=== PATIENT | male | born 1990 | race Caucasian/White ===

== ENCOUNTER 2024-02-17 22:14 | Observation (INO) | payer OTHER, SELFPAY ==
[2024-02-17 17:09] VITALS: BP 108/73
[2024-02-17 17:32] VITALS: BP 100/60
[2024-02-17 17:34] VITALS: BMI 24.6
[2024-02-17 17:57] LABS: % Basophils 0.4 % (0-2); % Eosinophils 0.4 % (0-6); % Immature Granulocytes 0.3 % (0-0.5); % Lymphocytes 22.1 % (20.5-51.1); % Monocytes 6.4 % (1.7-9.3); % Neutrophils 70.4 % (42.2-75.2); Absolute Monocytes 0.6 10^3/uL (0.1-0.6); Absolute Neutrophils 6.3 10^3/uL (1.4-6.5); Hematocrit 41.9 % (39.0-52.0); Hemoglobin 14.2 g/dL (13.0-18.0); Mean Corp Hgb Conc. 33.9 g/dL (33.0-37.0); Mean Corpuscular Hgb 28.7 pg (27.0-31.0); Mean Corpuscular Volume 84.8 fL (80.0-94.0); Mean Platelet Volume 8.7 fL (7.4-10.4); Nucleated Red Blood Cells % 0 % (-); Platelet Count 267 10^3/uL (130-400); Red Blood Cell Count 4.94 10^6/uL (4.70-6.10); Red Cell Dist. Width 14.5 % (11.5-14.5); White Blood Cell Count 8.9 10^3/uL (4.8-10.8)
[2024-02-17 18:11] LABS: ALT (SGPT) 32 U/L (0-50); AST (SGOT) 32 U/L (17-59); Albumin 4.7 g/dl (3.5-5.0); Alkaline Phosphatase 87 U/L (38-126); Blood Urea Nitrogen 19 mg/dl (9-20); Calcium 10.2 mg/dl (8.4-10.2); Carbon Dioxide 23 mmol/L (22-30); Chloride 101 mmol/L (98-107); Estimated Creatinine Clearance 78 ml/min; Glucose 148 mg/dl (70-99); Potassium 4.4 mmol/L (3.5-5.1); Sodium 138 mmol/L (135-145); Total Bilirubin 0.4 mg/dl (0.2-1.3); Total Protein 7.4 g/dl (6.3-8.2); eGFR 58.71
--- NOTE | 2024-02-17 18:23 | ED.GENMED ---
History of Present Illness
General
Chief Complaint: Alcohol Problem
Source: patient
Time Seen by Provider: 02/17/24 18:06
History of Present Illness
History of Present Illness:
33yoM with a history of drug and alcohol abuse presenting for detox evaluation. Patient reports that he is detoxing from alcohol, benzodiazepines, and fentanyl. Last use of benzos and alcohol was 3 days ago. He used IV fentanyl earlier today.
Patient reports that he had 2 seizures today. He does not recall the episodes although he was told by his that he had generalized shaking during this. He states all he remembers is waking up on the ground. Episodes occurred around 9 to 10 AM
this morning. Since this, patient has been feeling dizzy and off balance. Patient also reports fatigue and malaise. He had a temperature of 101.2 yesterday. He believes he may have a urinary tract infection because he is having urinary frequency
and foul-smelling urine.
Patient has a history of withdrawal seizures in the past. He typically drinks 1 pint to 1 L of vodka daily. He also typically takes Xanax 2mg 3-4 times daily.
Phy Exam
Physical Exam
Physical Exam:
Appears fatigued, non-toxic. Easily aroused and answering questions appropriately
General Physical Exam
General Skin: warm and dry
General Mental: alert
Cardiovascular Exam
Cardiovascular Exam: regular rate/rhythm, no edema and no murmur
Pulmonary Exam
Pulmonary Exam: lungs clear, no respiratory distress and no crackles
Gastrointestinal Exam
Gastrointestinal Exam: non tender, soft and non distended
Neurological Exam
Neurological Exam: alert
[place] Coma Scale
Eye Opening: Spontaneous
Verbal Response: Oriented
Motor Response: Obeys Commands
GCS Total Score: 15
Skin Exam
Skin Exam: normal color and warm/dry
Psychiatric Exam
Psychiatric Exam: normal mood/affect
Scores
Withdrawal Assessment of Alcohol
Withdrawal Assessment Completed?: Not applicable
Course
Orders/Labs/Results
Orders:
Orders
02/17/24 17:47
Electrocardiogram (*1) Urgent
Reason for Study: Vertigo / Dizzy
02/17/24 17:48
EKG- Treatment ONCE
02/17/24 17:49
Complete Blood Count/With Diff Urgent
Comprehensive Metabolic Panel Urgent
02/17/24 18:21
Cardiac Monitoring- Treatment ONCE
0.9% Sodium Chloride 1000 ml [Nss] 1,000 ml IV BOLUS
02/17/24 18:22
CT Head W/o Iv Contrast Urgent
Comment:
Reason For Exam: Head strike, seizure
CR Chest - 2 Views Urgent
Comment:
Reason For Exam: Cough
02/17/24 18:25
Alcohol Urgent
Magnesium Urgent
Salicylate Urgent
Total CK [Creatine Phosphokinase] Urgent
Troponin I Urgent
Tylenol [Acetaminophen] Urgent
02/17/24 18:28
COVID-19 Antigen Urgent
Source: Nasal Swab
Lactate Level [Lactic Acid] Urgent
Blood Culture Urgent
ANA ROSA Source: Blood/Venous
Specimen Description:
02/17/24 18:59
0.9% Sodium Chloride 1000 ml [Nss] 1,000 ml IV BOLUS
02/17/24 19:06
Urinalysis Reflex To Culture Urgent
Date Specimen was Collected: 02/17/24
Time Specimen was Collected: 18:58
Urine Microscopic Reflex Cult Urgent
Blood Culture Routine
ANA ROSA Source: Blood/Venous
Specimen Description:
02/17/24 22:01
Admit/Transfer Patient As Directed
Co-Sign Provider:
Level of Care: Observation services
Assign to:: Medical/Surgical
Physician / Group: Beverley
Diagnosis: Seizure
PRN Pain Medication Management As Directed
May give lesser potent ordered pain med per pt: Yes
preference::
Protocol:: Medication orders for pain may be administered in a
manner that supports deferring to patient preference
when the pt is:
- Requesting an ordered lesser potent pain medication.
Least to most potent pain medications are defined
as: acetaminophen < NSAID < tramadol < opioids
(morphine, oxycodone, hydromorphone).
- Requesting a lesser dose of the same medication IF
ORDERED.
- Requesting a less intrusive route of administration
if both routes are prescribed by the provider (PO <
IV).
02/17/24 22:02
Code Status As Directed
Resuscitation Status: Full Code
02/17/24 22:45
0.9% Sodium Chloride 1000 ml [Nss] 1,000 ml IV 125 mls/hr
0.9% Sodium Chloride [Nss (Preservative Free)] See Protocol IV PRN PRN
Acetaminophen [Tylenol] 650 mg PO Q4HPRN PRN
Bisacodyl [Dulcolax] 10 mg RECTAL [id number] PRN
Docusate W/Senna [Senokot-S] 1 tablet PO BIDPRN PRN
FOLic ACID [Folvite] 1 mg 0.9% Sodium Chloride 50 ml [Nss] 50 ml IV DAILYPRN
Ketorolac [Toradol] 10 mg IV Q6HPRN PRN
Lorazepam [Ativan] 1 mg IV Q1HPRN PRN
Lorazepam [Ativan] 1 mg PO Q2HPRN PRN
Lorazepam [Ativan] 2 mg IV Q1HPRN PRN
Ondansetron Injectable [Zofran] 4 mg IV Q6HPRN PRN
Polyethylene Glycol Powder [Miralax] 17 grams PO DAILYPRN PRN
02/17/24 22:45
Case Management Consult Once
Case Management Consult: Other
Comment: Substance abuse counseling
DIETARY CONSULT Routine
Reason for Consult: Nutrition support, possible refeeding guidelines
NEUROLOGY CONSULT Routine
Consulting Provider: Jam Pham
Was physician already notified: Yes
Reason for consult: Seisure,
Complete Blood Count/With Diff Routine
Urinalysis Routine
Urine Drug Abuse Screen Routine
Activity As Directed
Activity Level: Out of Bed-Early Mobility
MSAS SCORE As Directed
MSAS Score 0-4: Repeat MSAS every 2 hours until 0-4 for three consecutive assessments, then every 4 hours x 48
hours.
MSAS Score 5-7: For MILD withdrawl symptoms. Repeat MSAS and RASS every 2 hours
MSAS Score 8-11: For MODERATE withdrawal symptoms. Repeat MSAS and RASS every 1 hour. Consider ICU or IMU
level of care.
MSAS Score > 11: For SEVERE withdrawal symptoms. Repeat MSAS and RASS every 1 hour. Notify provider, consider
ICU level of care.
MSAS Additional Instructions: If no improvement or no decrease in score from severe to moderate within 12
hours, consult psychiatry
MSAS Notify Provider: Notify provider if patient requires more than 10 mg of Lorazepam in eight hour period.
Precautions As Directed
Type of Precautions: Seizure
Comment: Fall precaution
Vital Signs As Directed
Frequency: Per unit guidelines
DX Deep Vein Thrombosis Video Routine
02/18/24 00:00
Thiamine Injection 200 mg IV Q8
02/18/24 Breakfast
Regular
Basic Metabolic Panel IN AM
Magnesium IN AM
02/18/24 08:00
FOLic ACID [Folvite] 1 mg PO DAILY
02/18/24 18:00
Enoxaparin Sodium [Lovenox] 40 mg SC QPM
02/21/24 08:00
Thiamine HCl [Vitamin B1] 100 mg PO BID
Abnormal Lab Results
02/17/24 02/17/24 02/17/24
17:49 18:25 18:28
Creatinine 1.6 H mg/dL
(0.7-1.3)
Glucose 148 H mg/dl
(70-99)
Lactic Acid 2.5 H mmol/L
(0.7-2.0)
Urine Ketones
Urine Bilirubin
Urine Urobilinogen
Leukocyte Esterase Rfl
Urine Albumin (Reflex)
Salicylates < 1.0 L mg/dl
(2.0-20.0)
Acetaminophen < 10 L ug/ml
(10-30)
02/17/24
19:06
Creatinine
Glucose
Lactic Acid
Urine Ketones Trace A
(Negative)
Urine Bilirubin 1+ A
(Negative)
Urine Urobilinogen 2+ A
(Neg - 1+)
Leukocyte Esterase Rfl Trace A
(Negative)
Urine Albumin (Reflex) 1+ A
(Neg - Trace)
Salicylates
Acetaminophen
02/17/24 17:49
02/17/24 17:49
Vital Signs
Initial and Last Documented VS:
Initial Vital Signs
Temp Pulse Resp BP Pulse Ox
98 F 87 20 108/73 100
02/17/24 17:09 02/17/24 17:09 02/17/24 17:09 02/17/24 17:09 02/17/24 17:09
Last Documented Vital Signs
Temp Pulse Resp BP Pulse Ox
98 F 63 16 108/67 95
02/17/24 17:09 02/17/24 21:00 02/17/24 22:05 02/17/24 21:00 02/17/24 21:00
MDM/Problems Addressed
Differential Diagnosis Includes:
33yoM here after two reported seizures at home this morning. Patient stopped alcohol and benzos 3 days ago. Admits to actively using IV fentanyl. Also reports a fever of 101.2 yesterday. He is afebrile here with otherwise normal vitals. He is
fatigued on exam but non-toxic. Differential diagnosis includes but is not limited to: withdrawal seizure, syncope, dehydration, alcohol/benzo withdrawal
Initial ED plan: Will check septic workup given report of fever and active IVDU. Check cardiac labs, EKG, UA, CXR, and CT head. IV fluid bolus.
*EKG
Interpreted by ED Provider?: Yes
EKG Intrepretation Date: 02/17/24
Heart Rate: 76
Rate: normal
Rhythm: sinus
[place]: normal axis
Interval: normal interval
QRS Pattern: normal QRS
Ischemia: other (Benign early repolarization)
*Critical Care Note
Total Time (30-74mins, 75-104mins- exclusive of procedures): Not Applicable
Update Note
Update Note:
Labs reveal a creatinine of 1.6, unclear baseline. White count normal. Lactate 2.5. CT head is negative. No signs of infection on UA or CXR. Will admit for further management.
ED Attending Note
-
Portions of this chart may have been created with voice recognition software.� Occasional wrong word or��sound alike� substitutions may have occurred due to the inherent limitations of voice recognition software.
Discharge Plan
Departure
Patient Disposition: Admit
Date of Disposition: 02/17/24
Time of Disposition: 21:34
Presentation/result/management discussed w/ accepting MD/DO: Hospitalist
Discharge Problem:
Seizure, Subjective fever
Interventions
Interventions:
*Risk Screen - Suicide Last Done: 02/17/24 17:35
*General Assessment Last Done: 02/17/24 17:35
*Neglect/Abuse Screening Last Done: 02/17/24 17:35
*ED COVID-19 Vaccine History Last Done: 02/17/24 17:35
ED- Neurological Assessment Last Done: 02/17/24 17:38
ED-Psychological Assessment Last Done: 02/17/24 17:38
[2024-02-17] MEDS: NSS 1000 IV ×2 (18:31→19:10)
[2024-02-17 18:46] LABS: COVID-19 Antigen Negative (Negative)
[2024-02-17 18:54] LABS: Lactic Acid 2.5 mmol/L (0.7-2.0)
[2024-02-17 18:54] LABS: Acetaminophen < 10 ug/ml (10-30); Alcohol None Detected; Creatine Phosphokinase 58 U/L (55-170); Salicylate < 1.0 mg/dl (2.0-20.0)
[2024-02-17 19:05] LABS: Troponin I < 0.012 ng/ml
[2024-02-17 19:06] VITALS: BP 102/73
[2024-02-17 19:15] LABS: Urine Albumin 1+ (Neg - Trace); Urine Bilirubin 1+ (Negative); Urine Character Slightly Cloudy (Clear); Urine Color Yellow; Urine Glucose Negative (Negative); Urine Ketone Trace (Negative); Urine Leukocyte Trace (Negative); Urine Nitrite Negative (Negative); Urine Occult Blood Negative (Negative); Urine Urobilinogen 2+ (Neg - 1+)
[2024-02-17 19:30] LABS: Urine Squamous Cell >30 /LPF (Few)
[2024-02-17 19:31] LABS: Urine Red Blood Cell 0-2 /HPF (0-2)
[2024-02-17 20:00] VITALS: BP 103/76
[2024-02-17 21:00] VITALS: BP 108/67
--- NOTE | 2024-02-17 22:07 | HPS.HSE ---
Family Physician
-
Family Physician: * NONE
Chief Complaint
-
Seizure
History of Present Illness
33-year-old male with history of polysubstance abuse including benzodiazepine, narcotic and alcohol who presented to the hospital after had a witnessed couple episodes of seizure while he was just outside his house by his car, witnessed by his .
Patient admitted 3 days ago he decided to stop benzo and alcohol on his own while he is still getting narcotic like today get some IV fentanyl, admitted he was shaky and sweaty and he decided to go [facility] and where he had a seizure
witnessed by his , patient of not much recollection of the event and he was notified and told by his .
The seizures up nearly in the morning around 9 to 10 AM, and look like after that decided to stay home and is feeling tired and fatigued and lousy and generalized body ache, and he did not call EMS look like family brought him to the hospital.
Patient currently sleepy but arousable oriented x 3 able to provide detailed information. Complaining of feeling tired, sleepy and having generalized body ache while moving extremities freely and admitted yesterday had fever at home temperature one
1.2 also having some increased urinary frequency dysuria and foul-smelling urine urinalysis he is in some leukocyte Estrace did not show nitrate or bacteria and white cell count was 325.
Patient admitted history of the prior seizure and he was on Keppra but stopped taking it on his own a month ago.
Medical History
Past Medical History
Past Medical History: Reports Other
Additional Past Medical History:
Past medical history archive reviewed:
History of substance abuse
History of seizure
Noncompliant
Social history: Lives with his , admit he used to be heavy drinker until 3 days ago when he decided to stop on his own, smokes cigarette daily but it varies in number also uses fentanyl regularly.
Family history: Reviewed and noncontributory
Past Surgical History: Reports Other
Social History
Unable to obtain full social history at this time due to: Other
Family History
Family History: Other
Allergies / Home Medications
Allergies reflects when Allergies were last updated in [facility] [employer].
Home Medications with original date entered in [facility] [employer]
Allergy/Medication List:
Allergies
Allergy/AdvReac Type Severity Reaction Status Date / Time
No Known Allergies Allergy Unverified 02/17/24 17:13
Home Medications
Patient admitted he is not taking any medical
Review of Systems
-
A 12 point ROS was completed and negative except as noted: Yes
Physical Exam
Vital Signs
Vital Signs
Temp Pulse Resp BP Pulse Ox
98 F 63 16 108/67 95
02/17/24 17:09 02/17/24 21:00 02/17/24 22:05 02/17/24 21:00 02/17/24 21:00
Physical exam:
General: Sleepy and lethargic but arousable and oriented x3, not in distress and holds appropriate conversation.
HEENT: No active discharge, ecchymosis or bruising, dry lips, tongue and mucous membrane.
Eyes: No discharge or red conjunctiva, no nystagmus, pupils are reactive and equal
Neck:Supple, no JVD no bruit no goiter.
Respiratory: Normal AP contour and diameter, normal chest wall movement, normal respiratory effort, no respiratory distress,
Lungs: Good air entry bilaterally, no wheezing or rhonchi, no rales or crackles
Heart: S1, S2 regular, normal rate, no added sound.
Gastrointestinal: Positive bowel sounds, soft, nontender, no guarding or rigidity or organomegaly
Musculoskeletal: , no chest wall abnormality or tenderness. All joints and extremities have good range of motion, no muscle tenderness or any joint swelling or tenderness.
Extremities: No pitting edema, good peripheral pulses, good range of motion
Skin: Warm and dry, no ulceration, normal color.
Neurological: Sleepy, arousable and oriented x3, lower extremities freely, no facial droop, speech clear and comprehensive, good muscle tone,
Psychiatric: Sleepy, normal thought and judgment, flat affect,
Physical Exam
General: Other
Laboratory Results
-
02/17/24 17:49
02/17/24 17:49
Laboratory Results
Lactic Acid 2.5 mmol/L (0.7-2.0) H 02/17/24 18:28
Total Bilirubin 0.4 mg/dl (0.2-1.3) 02/17/24 17:49
AST 32 U/L (17-59) 02/17/24 17:49
ALT 32 U/L (0-50) 02/17/24 17:49
Alkaline Phosphatase 87 U/L (38-126) 02/17/24 17:49
Troponin I < 0.012 ng/ml 02/17/24 18:[address]:No evidence of acute intracranial abnormality.
Chest x-ray: No acute cardiopulmonary abnormality
Data Reviewed
-
Diagnostic Radiology: Report Reviewed by me and Discussed with Patient
CT Scan: Report Reviewed by me and Discussed with Patient
Lab Data: Labs Reviewed by me and Discussed with Patient
Old Records: Reviewed
Impression/Plan
-
IMPRESSION:
33-year-old male with history of polysubstance abuse and prior seizure related to substance abuse, presented to the hospital after had a couple of witnessed seizure by his at home patient stopped benzo and alcohol 3 days ago on his own will
continue to take fentanyl.
Encephalopathy: Likely postictal while substance-induced related as a possibility infectious causes, scattered encephali meningitis, there is no fever or leukocytosis even patient had a fever at home yesterday
Close monitoring
IV fluid
Get a UDS
Seizure: Likely secondary to withdrawal from benzo and alcohol as he did not take for the last 3 days while other causes need to be considered
Patient needs to be on Keppra he does not know the dose but did not take it for a month.
I will start him on IV Keppra 500 IV twice daily
Neurology consult
Seizure precaution
IV fluid
CT brain showed no acute abnormality
Lactic acidosis: Mild lactic acid is 2.5 likely secondary to seizure
IV fluid
Recheck
Urinary symptoms: Have a trace leukocyte but no bacteria leukocyte nitrite, since he is symptomatic with that I will start him on Rocephin could be de-escalated pending culture sensitivity
Polysubstance abuse: Advised about quitting and risks of the continuation explained to him in detail
Patient willing to go to inpatient rehab for now
Alcohol withdrawal protocol
Close monitoring
Elevated creatinine: We do not know the baseline.
IV fluid
Recheck
Avoid nephrotoxin
All discussed with the patient in detail and expressed understanding
CODE STATUS full code
DVT prophylaxis
[2024-02-17] MEDS: KEPPRA 500 MG IV (22:26)
[2024-02-17] MEDS: ROCEPHIN 1000 MG IV (22:31)
[2024-02-17] MEDS: STERILE WATER FOR INJECTION 10 ML IV (22:31)
[2024-02-17 22:46] VITALS: BMI 24.6
[2024-02-17 23:00] VITALS: BP 144/92
--- NOTE | 2024-02-17 23:00 | PTCARENOTE ---
Pt arrived onto floor @2254. Pt AAOx3, able to stand and pivot into bed due to fatigue. Pt only complaint at this time is fatigue and malaise. Pt oriented to room and call herrera; will continue to monitor.
[2024-02-18] MEDS: NSS 1000 IV ×2 (00:13→08:44)
[2024-02-18] MEDS: THIAMINE INJECTION 200 MG IV ×3 (00:13→16:08)
--- NOTE | 2024-02-18 00:20 | PTCARENOTE ---
Pt found to be more sedated when performing admission questions. Upon arrival to floor, Pt entered to use bathroom. After returning to from bathroom, pt appeared more drowsy than earlier. Pt able to respond to verbal stimuli, however, with much
less attention. Pt also only AAOx2 (pt aware that he is at a hospital, but unsure of which one).
When performing skin assessment, multiple needles, small ziplock baggies, and vape found in pt's clothes. When asked about these items, Pt would only respond 'they're mine.' When told these items would need to be placed somewhere else, Pt started
to become agitated, and grabbed items back from RN. Security was called, and pt's belongings were searched --- with previously mentioned items removed from room. [facility] notified. Will continue to monitor closely
[2024-02-18 01:00] VITALS: BP 144/92
[2024-02-18 03:00] VITALS: BP 134/85
[2024-02-18 07:30] VITALS: BP 119/75
[2024-02-18 08:27] LABS: Blood Urea Nitrogen 17 mg/dl (9-20); Calcium 9.4 mg/dl (8.4-10.2); Carbon Dioxide 25 mmol/L (22-30); Chloride 105 mmol/L (98-107); Estimated Creatinine Clearance > 125 ml/min; Glucose 134 mg/dl (70-99); Magnesium 1.9 mg/dl (1.6-2.3); Potassium 4.5 mmol/L (3.5-5.1); Sodium 139 mmol/L (135-145); eGFR > 60.00
[2024-02-18] MEDS: FOLVITE 1 MG PO (08:43)
[2024-02-18] MEDS: KEPPRA 500 MG IV (08:43)
[2024-02-18 08:45] LABS: % Basophils 0.4 % (0-2); % Eosinophils 1.9 % (0-6); % Immature Granulocytes 0.5 % (0-0.5); % Lymphocytes 34.5 % (20.5-51.1); % Monocytes 7.2 % (1.7-9.3); % Neutrophils 55.5 % (42.2-75.2); Absolute Eosinophils 0.2 10^3/uL (0-0.7); Absolute Lymphocytes 2.9 10^3/uL (1.2-3.4); Absolute Monocytes 0.6 10^3/uL (0.1-0.6); Absolute Neutrophils 4.6 10^3/uL (1.4-6.5); Hematocrit 38.9 % (39.0-52.0); Mean Corp Hgb Conc. 33.4 g/dL (33.0-37.0); Mean Corpuscular Hgb 28.7 pg (27.0-31.0); Mean Corpuscular Volume 85.9 fL (80.0-94.0); Mean Platelet Volume 9.6 fL (7.4-10.4); Nucleated Red Blood Cells % 0 % (-); Platelet Count 256 10^3/uL (130-400); Red Blood Cell Count 4.53 10^6/uL (4.70-6.10); Red Cell Dist. Width 14.4 % (11.5-14.5); White Blood Cell Count 8.3 10^3/uL (4.8-10.8)
--- NOTE | 2024-02-18 09:56 | W.PN.HOSP.TC ---
Today's Communication/Plan
-
Continue IV Keppra
Continue IV ceftriaxone
CIWA protocol and as needed benzos for seizures
Follow-up neurology recs
Assessment / Plan
Assessment / Plan
#Toxic metabolic encephalopathy
-Secondary to seizure event, use of illicit substances overnight
-CT brain without contrast on arrival did not show acute abnormalities
-He is directable, able to hold conversation, no neurological deficits
-Seems that his encephalopathy is improving with time
-UDS pending, no packages or visitors due to illicit substances
-Monitor clinically
#Seizure
-Likely related to benzodiazepine and alcohol use, may have underlying seizure disorder as well
-States that he was supposed to be on Keppra, has not taken it in weeks, does not know why he has not taken it
-Was started on IV Keppra 500 mg twice daily upon admission, will continue for now
-Neurology following, appreciate recommendations
#Urinary symptoms
-Complained of symptoms on arrival, initial UA with trace leukocytes but no bacteria or other signs of infection
-Was started on IV ceftriaxone empirically
-Will monitor, low threshold to discontinue antibiotic
-Cultures pending
#Polysubstance abuse -- opioid, marijuana
-Advised about quitting
-Patient willing to go to inpatient rehab but now threatening AMA
-Encourage substance abuse rehab following discharge here
-Currently on alcohol withdrawal protocol, CIWA score low this morning
#Lactic acidosis (resolved)
-secondary to seizure and prerenal state
# Prerenal ANUJ (resolved)
-Likely dehydrated, status post IV fluids
All discussed with the patient in detail and expressed understanding
CODE STATUS full code
DVT prophylaxis
Anticipated Discharge: 24 - 48 hours
Subjective/Interval History
-
Date of Service: February 18, 2024
Seen and examined at the bedside. Overnight he used the restroom and stayed there for 40 minutes. Was searched by security who found baggies, syringes, and a vape pen. He seems lethargic this morning though responsive and oriented. Placed an
order into the system for no visitors were no packages delivered.
He denies any chest pain, shortness of breath, fevers or chills, nausea, vomiting, diarrhea. Denies paresthesias or weakness.
He does mention that he feels like he is having alcohol withdrawal and request medication. CIWA this morning very low. Threatening to leave AMA, I cautioned him against this and encouraged him to stay in the hospital for neurological evaluation
and reinitiation of his antiepileptic therapy.
Objective Data
-
Labs:
Laboratory Results
02/18/24
07:01
WBC 8.3
Hgb 13.0
Hct 38.9 L
Plt Count 256
Sodium 139
Potassium 4.5
Chloride 105
Carbon Dioxide 25
BUN 17
Creatinine 0.9
Glucose 134 H
Calcium 9.4
Vital Signs:
Vital Signs
Temp Pulse Resp BP Pulse Ox
97.5 F 65 18 119/75 99
02/18/24 07:30 02/18/24 07:30 02/18/24 07:30 02/18/24 07:30 02/18/24 07:30
I&O
02/17/24 02/18/24 02/19/24
06:59 06:59 06:59
Intake Total 850 / 850 480 / 480
Balance 850 / 850 480 / 480
Review of Systems
-
History Source: Patient
All other systems: Reviewed and negative
Physical Exam
-
General: No Apparent Distress, Comfortable and Other (Thin male, tattoos)
HEENT: Normocephalic, Atraumatic, Moist Mucous Membranes and Anicteric
Respiratory: Clear to Auscultation and Non Labored Respirations
Cardiac: Regular Rhythm and S1/S2; Negative Murmur, Rub or Gallop
GI: Soft, Nontender, Nondistended and Normal Bowel Sounds
Musculoskeletal: No Clubbing, No Cyanosis and No Edema
Skin: Warm, Dry and Rash
Neuro: AO x 3, Nonfocal/Grossly Intact and Central Nerve's Intact; Negative Tremors or Slurred Speech
Data Reviewed
-
Labs: Labs Reviewed by me and Discussed with Patient
[2024-02-18] MEDS: TYLENOL 650 MG PO (13:10)
--- NOTE | 2024-02-18 13:32 | PTCARENOTE ---
Dr Arcos aware pharmacy added medications to pt's home list. RN reviewed medications with pt. Dr Arcos stated he will look at them and will order medications he can receive.
[2024-02-18 15:02] LABS: Urine Albumin Negative (Neg - Trace); Urine Bilirubin Negative (Negative); Urine Character Clear (Clear); Urine Color Yellow; Urine Glucose Negative (Negative); Urine Ketone Negative (Negative); Urine Leukocyte Trace (Negative); Urine Nitrite Negative (Negative); Urine Occult Blood Negative (Negative); Urine Specific Gravity 1.015 (<1.030); Urine Urobilinogen Negative (Neg - 1+); Urine pH 6.5 (5.0-9.0)
[2024-02-18 15:08] LABS: Amphetamines Negative (Negative); Barbiturates Positive (Negative); Benzodiazepines Negative (Negative); Buprenorphine Positive (Negative); Cocaine Negative (Negative); Marijuana Positive (Negative); Methadone Negative (Negative); Methamphetamines Negative (Negative); Opiates Negative (Negative); Phencyclidine Negative (Negative); Tricyclic Antidepressants Negative (Negative)
[2024-02-18 15:25] VITALS: BP 117/72
[2024-02-18 15:35] LABS: Fentanyl, Urine Positive (Negative)
--- NOTE | 2024-02-18 15:56 | CM ---
Patient seen bedside, received consult for substance use counseling. Patient falling asleep bedside. CM inquired if patient has insurance, patient reports he has [employer]. CM unable to conduct initial assessment due to patient falling asleep,
CM repeated questions several times. Call placed to patients significant other, Jessie, to inquire if patient has insurance. Jessie reports patient does have [employer], patient lost insurance card, Jessie will try to find card to provide policy
number. CM will continue to follow for all discharge planning needs.
Plan; follow up with patient, offer [facility].
[2024-02-18] MEDS: NEURONTIN 300 MG PO (16:08)
[2024-02-18 16:25] LABS: Urine Hyaline Cast 0-2 /LPF (0-2); Urine Mucus Few; Urine Red Blood Cell 0-2 /HPF (0-2)
--- NOTE | 2024-02-18 17:24 | W.PN.UPDATE ---
Update Note
Progress Note Update
Patient requested to speak with me in the room. Upon my arrival he is frustrated that he is not receiving Ativan. He says that he is in the hospital for his 'withdrawal' and that he is withdrawing very bad over the last 3 days. States that we are
not providing him care.
His CIWA score is very low, no indication to provide as needed benzodiazepine at this time. Additionally, his UDS was positive for cannabis, fentanyl, buprenorphine, barbiturates. Would avoid unneeded narcotics.
He is still pending neurological evaluation. Remains on an IV Keppra regimen of 500 mg twice daily for his seizure disorder. As needed benzodiazepines are ordered per CIWA protocol and for breakthrough seizure events. His additional home
medications were reconciled today and added to his active medication list.
He again threatened to leave AMA. Again, I encouraged him to to stay in the hospital for neurological evaluation.
--- NOTE | 2024-02-18 18:48 | PTCARENOTE ---
pt signed himself out AMA. Dr Arcos at bedside and had pt sign the form. he explained all the risks of him leaving. pt verbalized an understanding and still decided to leave. pt walked out of unit.
--- NOTE | 2024-02-18 18:49 | W.DCSUMMARY ---
Discharge Summary
Discharge Data
Date of Admission: 02/17/24
Date of Discharge: 02/18/24
-
Pending Results: No
Hospital Course
Patient left AMA from hospital. Presented with seizures likely related to alcohol/benzodiazepine withdrawal. Was resumed on IV Keppra in place of oral Keppra, and continued on home meds upon arrival. Was not taking his medications for unclear
reason. UDS positive for fentanyl, buprenorphine, cannabis and barbiturates. CIWA remained very low while hospitalized, patient repeatedly requested Ativan to treat his withdrawal symptoms. When not given he decided to leave AMA prior to
neurology evaluation.
Discharge Plan
-
Patient Disposition: Against Medical Advice
Discharge Diagnosis/Procedures: Seizure
Polysubstance abuse
Condition: Serious
Diet: No restrictions
Activity: As tolerated
Driving Restrictions: Not until seen by your Dr
Bathing Restrictions: None
Activity Restrictions/Additional Instructions:
Encourage patient to stay in the hospital though he refused the advice
Referrals:
NONE,* [Family Provider] -
Additional Discharge Medication Instructions: Continue antibiotics for UTI as prescribed prior to admission
Take Keppra twice daily, gabapentin 3 times daily to prevent seizures
Prescriptions:
Continued
levetiracetam 500 mg tablet
500 mg PO BID
Rx Instructions:
Last filled 02/12/24 x28 days supply
doxepin 75 mg capsule
75 mg PO HS
Rx Instructions:
Last filled 02/12/24 x10 days supply
olanzapine 5 mg tablet
5 mg PO DAILY
Rx Instructions:
Last filled 02/12/24 x10 days
sumatriptan succinate 50 mg tablet
50 mg PO DAILYPRN PRN (Reason: Headaches)
Rx Instructions:
Last filled 01/09/24 #9 x9 days supply
gabapentin 300 mg capsule
300 mg PO TID
Rx Instructions:
Last filled 02/12/24 #12 x4 days supply
olanzapine 15 mg tablet
15 mg PO HS
Rx Instructions:
Last filled 02/12/24 x10 days supply
fluoxetine 20 mg capsule
20 mg PO DAILY
Rx Instructions:
Last filled 02/12/24 x10 days
varenicline 1 mg tablet
1 mg PO BID
Rx Instructions:
Last filled 02/11/24 x10 days supply
Sublocade 300 mg/1.5 mL solution, extended rel syringe
300 mg SC MONTHLY
Patient Comments:
pt states he is due for an injection now
Rx Instructions:
Last filled 01/12/24 x28 days supply (1.5mL)
No Action
amoxicillin-pot clavulanate 875-125 mg tablet
1 tab PO BID
Rx Instructions:
start 02/11/24 #20 x10 days supply
Discharge Date and Time
Discharge Date/Time: 02/18/24 18:45
Print Language: ITALIAN
== END 2024-02-18 18:45 | disposition left against medical advice (07) ==
LOC: 4 WEST ACU 22:14
PROVIDERS: Physician Assistant; ADMITTING PHYSICIAN Internal Medicine; ATTENDING PHYSICIAN Internal Medicine; EMERGENCY PHYSICIAN Student in an Organized Health Care Education/Training Program
DX: R56.9 Unspecified convulsions (principal); R42 Dizziness and giddiness; F19.10 Other psychoactive substance abuse, uncomplicated; F10.10 Alcohol abuse, uncomplicated; R53.81 Other malaise; R53.83 Other fatigue; R35.0 Frequency of micturition; R05.9 Cough, unspecified; R50.9 Fever, unspecified; F17.210 Nicotine dependence, cigarettes, uncomplicated; E87.20 Acidosis, unspecified; G92.8 Other toxic encephalopathy; N17.9 Acute kidney failure, unspecified; Z91.199 Patient's noncompliance with other medical treatment and regimen due to unspecified reason; Z11.52 Encounter for screening for COVID-19
CPT/HCPCS: 70450; 71046; 74018; 80048; 80053; 80143; 80179; 80306; 80307; 81003; 81015; 82077; 82550; 83605; 83735; 84484; 85025; 87040; 87811; 93005; 96360; 99285; G0378

== ENCOUNTER 2024-02-20 20:10 | Emergency (ER) | payer MEDICARE, OTHER, MEDICAID, SELFPAY ==
[2024-02-20 20:25] VITALS: BP 107/63
[2024-02-20 20:49] LABS: % Basophils 0.3 % (0-2); % Eosinophils 1.7 % (0-6); % Immature Granulocytes 0.2 % (0-0.5); % Lymphocytes 43.3 % (20.5-51.1); % Neutrophils 48.5 % (42.2-75.2); Absolute Eosinophils 0.1 10^3/uL (0-0.7); Absolute Lymphocytes 2.6 10^3/uL (1.2-3.4); Absolute Monocytes 0.4 10^3/uL (0.1-0.6); Absolute Neutrophils 2.9 10^3/uL (1.4-6.5); Hematocrit 37.3 % (39.0-52.0); Hemoglobin 12.7 g/dL (13.0-18.0); Mean Corpuscular Hgb 29.2 pg (27.0-31.0); Mean Corpuscular Volume 85.7 fL (80.0-94.0); Mean Platelet Volume 9.1 fL (7.4-10.4); Nucleated Red Blood Cells % 0 % (-); Platelet Count 257 10^3/uL (130-400); Red Blood Cell Count 4.35 10^6/uL (4.70-6.10); Red Cell Dist. Width 14.1 % (11.5-14.5)
[2024-02-20 21:08] LABS: Blood Urea Nitrogen 10 mg/dl (9-20); Calcium 9.8 mg/dl (8.4-10.2); Carbon Dioxide 27 mmol/L (22-30); Chloride 101 mmol/L (98-107); Glucose 200 mg/dl (70-99); Sodium 141 mmol/L (135-145); eGFR > 60.00
[2024-02-21 01:20] VITALS: BMI 25.5
[2024-02-21] MEDS: ATIVAN 1 MG PO ×2 (01:23→09:37)
[2024-02-21 02:00] VITALS: BP 113/78
[2024-02-21 03:00] VITALS: BP 104/68
--- NOTE | 2024-02-21 03:11 | ED.GENMED ---
History of Present Illness
General
Chief Complaint: Alcohol Problem
Source: patient
Exam Limitations: none
Time Seen by Provider: 02/21/24 01:09
History of Present Illness
History of Present Illness:
33-year-old male with a history of substance abuse who states he has been detoxing at home. Patient was just recently in the hospital and looking for detox but left AMA because he states he got frustrated waiting around. The patient states his
is reportedly has had seizures. He has a history of alcohol and opiate and benzodiazepine use. He states previously he was clean for 10 years. Currently no complaints. Patient states he called detox centers who advised him to come to the
hospital for clearance
Past History
Past History
ED Past Medical History: Other (IV drug abuse, benzodiazepine abuse, opiate abuse, alcohol abuse, withdrawal seizures)
Social History
Alcohol: Daily
Drug: Narcotics and IVDA
Phy Exam
Physical Exam
Physical Exam:
CONSTITUTIONAL Patient alert and oriented to person, place and time. Well-appearing. Vital signs reviewed.
HEAD atraumatic, normocephalic.
EYES eyelids normal to inspection, Pupils equally round and reactive to light, Extraocular muscles intact, Conjunctiva normal, Sclera normal.
NECK normal range of motion, Trachea midline, no jugular venous distention.
RESPIRATORY CHEST No respiratory distress noted, Chest expansion equal, Bilateral breath sounds clear.
CARDIOVASCULAR regular rate and rhythm, Heart sounds normal.
BACK normal inspection, no obvious deformities
UPPER EXTREMITY range of motion normal, Motor strength normal, no cyanosis, no edema.
LOWER EXTREMITY range of motion normal, Motor strength normal, no cyanosis, no edema.
NEURO Speech normal, No focal motor deficits, Thelma coma scale 15, Memory normal, Cranial Nerves intact to screening exam.
Scores
Withdrawal Assessment of Alcohol
Withdrawal Assessment Completed?: Yes
Nausea and Vomiting: No nausea and no vomiting
Tactile Disturbances: None
Tremor: No tremor
Auditory Disturbances: Not present
Paroxysmal Sweats: No sweat visible
Visual Disturbances: Not present
Anxiety: No anxiety, at ease
Headache, Fullness in Head: Not present
Agitation: Normal activity
Orientation and clouding of sensorium: Oriented and can do serial additions
Total CIWA Score: 0
Alcohol Withdrawal Medication Recommendation: Equal to MSAS Score 0-4. Monitor & re-assess q2hrs, NO MEDICATION NEEDED
Course
Orders/Labs/Results
Orders:
Orders
02/20/24 20:38
Basic Metabolic Panel Urgent
Complete Blood Count/With Diff Urgent
02/21/24 01:17
Lorazepam [Ativan] 1 mg PO NOW STA
02/21/24 04:13
Acetaminophen [Tylenol] 650 mg .ROUTE .STK-MED ONE
02/21/24 04:26
Acetaminophen [Tylenol] 650 mg PO NOW STA
02/21/24 04:30
Ondansetron Orally Disint [Zofran Odt (Orally Disintegrating)] 4 mg .ROUTE .STK-MED ONE
Ondansetron Orally Disint [Zofran Odt (Orally Disintegrating)] 4 mg PO NOW STA
02/21/24 09:20
Lorazepam [Ativan] 1 mg PO NOW STA
Abnormal Lab Results
02/20/24
20:38
RBC 4.35 L 10^6/uL
(4.70-6.10)
Hgb 12.7 L g/dL
(13.0-18.0)
Hct 37.3 L %
(39.0-52.0)
Glucose 200 H mg/dl
(70-99)
02/20/24 20:38
02/20/24 20:38
Vital Signs
Initial and Last Documented VS:
Initial Vital Signs
Temp Pulse Resp BP Pulse Ox
97.9 F 74 19 107/63 99
02/20/24 20:25 02/20/24 20:25 02/20/24 20:25 02/20/24 20:25 02/20/24 20:25
Last Documented Vital Signs
Temp Pulse Resp BP Pulse Ox
97.9 F 77 12 131/66 97
02/20/24 20:25 02/21/24 10:15 02/21/24 09:30 02/21/24 10:15 02/21/24 10:15
MDM/Problems Addressed
MDM/Problems Addressed:
Seizures, benzodiazepine abuse, alcohol abuse, opiate abuse
*Pulse Oximetry
Patient hypoxic: no
*Churner Interpretation
Rate: normal
Interpretation: normal
Rhythm: sinus
*Critical Care Note
Total Time (30-74mins, 75-104mins- exclusive of procedures): Not Applicable
Data Reviewed
Review of Other/Old Records Reveals: Labs (Recent blood cultures negative) and Discharge Summary (February 17 discharge summary reviewed)
Source: patient
Prescriptions/Medications Considered But Not Given:
Consider further IV benzodiazepines with patient with a very low withdrawal score
Patient Management
Escalation/DeEscalation of care consider admission/obs:
Case discussed with [facility]. Who evaluated the patient. Attempting for placement.
ED Attending Note
-
Portions of this chart may have been created with voice recognition software.� Occasional wrong word or��sound alike� substitutions may have occurred due to the inherent limitations of voice recognition software.
Discharge Plan
Departure
Patient Disposition: Acute Rehab Facility
Date of Disposition: 02/21/24
Time of Disposition: 03:18
Patient with high blood pressure during this ER visit?: No
Condition: Fair
Covid-19: Not Applicable
Discharge Problem:
Substance abuse
Prescriptions:
No Action
levetiracetam 500 mg tablet
500 mg PO DAILY
Rx Instructions:
Last filled 02/12/24 x28 days supply
doxepin 75 mg capsule
75 mg PO HS
Rx Instructions:
Last filled 02/12/24 x10 days supply
olanzapine 5 mg tablet
5 mg PO DAILY
Rx Instructions:
Last filled 02/12/24 x10 days
sumatriptan succinate 50 mg tablet
50 mg PO DAILYPRN PRN (Reason: Headaches)
Rx Instructions:
Last filled 01/09/24 #9 x9 days supply
gabapentin 300 mg capsule
300 mg PO TID
Rx Instructions:
Last filled 02/12/24 #12 x4 days supply
olanzapine 15 mg tablet
15 mg PO HS
Rx Instructions:
Last filled 02/12/24 x10 days supply
fluoxetine 20 mg capsule
20 mg PO DAILY
Rx Instructions:
Last filled 02/12/24 x10 days
amoxicillin-pot clavulanate 875-125 mg tablet
1 tab PO BID
Rx Instructions:
start 02/11/24 #20 x10 days supply
varenicline 1 mg tablet
1 mg PO BID
Rx Instructions:
Last filled 02/11/24 x10 days supply
Sublocade 300 mg/1.5 mL solution, extended rel syringe
300 mg SC MONTHLY
Patient Comments:
pt states he is due for an injection now
Rx Instructions:
Last filled 01/12/24 x28 days supply (1.5mL)
Referrals:
NONE,* [Family Provider] -
Interventions
Interventions:
*Risk Screen - Suicide Last Done: 02/20/24 20:25
*General Assessment Last Done: 02/20/24 20:25
*Neglect/Abuse Screening Last Done: 02/20/24 20:25
ED- Fall Risk Assessment Last Done: 02/21/24 01:33
*ED COVID-19 Vaccine History Last Done: 02/20/24 20:25
*Nursing Disposition Last Done: 08/28/24 10:15
ED- Neurological Assessment Last Done: 02/21/24 01:33
ED-Psychological Assessment Last Done: 02/21/24 01:33
Discharge Date and Time
Discharge Date/Time: 02/21/24 10:15
Print Language: LATVIAN
[2024-02-21] MEDS: TYLENOL 650 MG PO (04:27)
[2024-02-21] MEDS: ZOFRAN ODT (ORALLY DISINTEGRATING) 4 MG PO (04:31)
[2024-02-21 10:15] VITALS: BP 131/66
== END 2024-02-21 10:15 ==
LOC: EMR 20:10
PROVIDERS: EMERGENCY PHYSICIAN Emergency Medicine
DX: F19.10 Other psychoactive substance abuse, uncomplicated (principal); R56.9 Unspecified convulsions
CPT/HCPCS: 99283; 80048; 85025